=== PATIENT | female | born 1990 | race Caucasian/White ===

== ENCOUNTER 2019-03-25 06:32 | Emergency (ER) | payer BC ==
[~2019-03-25] VITALS: Ht 152.4 cm; Wt 50.8 kg
[2019-03-25] MEDS ORDERED: SPIRONOLACTONE100 MG ORAL (06:43)
[2019-03-25 06:45] VITALS: BP 116/74
--- NOTE | 2019-03-25 06:45 | NUR ---
ED Nurse Note: pt brought in by ambulance for C/O allergic reaction since ealier today. pt stated she woke up with hives with tightness to chest. pt verbalizes SOB. pt stated she ate shellfish before going to sleep. pt is alert x4
[2019-03-25] MEDS ORDERED: Solu-MEDROL 125mg Inj IVP ONE (07:00)
[2019-03-25] MEDS ORDERED: DiphenhydrAMINE 50mg/ml Inj IVP ONE (07:00)
[2019-03-25] MEDS ORDERED: MEDROL DOSEPAK4 MG ORAL (07:17)
[2019-03-25] MEDS ORDERED: BENADRYL25 MG ORAL (07:17)
[2019-03-25] MEDS ORDERED: PEPCID AC20 M2 PO (07:17)
--- NOTE | 2019-03-25 07:19 | NUR ---
ED Nurse Note: report given to Helene Crain RN .
--- NOTE | 2019-03-25 07:40 | NUR ---
ED Nurse Note:pt relates feeling improved able to tolerate po fluids well. states she will uber home. tolerating ivf infusion well.
--- NOTE | 2019-03-25 07:57 | Emergency Room Report ---
History of Present Illness General Chief Complaint: Allergic Reaction Source: Patient Present Illness HPI Patient presents emergency department today complaining of acute allergic reaction. Patient states that she had some crab last night she is not sure if she has a shellfish allergy. She has eaten that before without difficulty. She developed acute onset of rash throughout the body. Associate with some sensation of throat swelling and mild shortness of breath. She came in for further evaluation. Denies any fever nausea vomiting diarrhea chills. Denies any chest pain shortness of breath. No prior episodes of this. Symptoms are noted to be severe. No other modifying factors. No other associated signs and symptoms. No other complaints were noted. Allergies: Coded Allergies: No Known Allergies (Unverified , 03/25/19) Patient History Past Medical History: none Past Surgical History: none Pertinent Family History: none Social History: Denies: smoking, alcohol use, drug use Now: No - IUD Reviewed Nursing Documentation: PMH: Agreed; PSxH: Agreed Nursing Documentation-PMH Past Medical History: No History, Except For Review of Systems All Other Systems: negative except mentioned in HPI Physical Exam Vital Signs Date Time Temp Pulse Resp B/P (MAP) Pulse Ox O2 Delivery O2 Flow Rate FiO2 03/25/19 06:39 97.5 108 30 110/74 (86) 91 Room Air 03/25/19 06:45 94 Sp02 EP Interpretation: reviewed, normal General Appearance: normal inspection, well appearing, no apparent distress, alert Head: atraumatic Eyes: bilateral eye normal inspection ENT: normal ENT inspection, hearing grossly normal, normal voice Neck: normal inspection, full range of motion, supple, no bony tend Respiratory: normal inspection, lungs clear, normal breath sounds, no respiratory distress, no retraction, no wheezing Cardiovascular #1: regular rate, rhythm, no edema Gastrointestinal: normal inspection, normal bowel sounds, non tender, soft, no guarding, no hernia Genitourinary: no CVA tenderness Musculoskeletal: normal inspection, back normal, normal range of motion Neurologic: normal inspection, alert, responsive, speech normal Psychiatric: normal inspection, judgement/insight normal, mood/affect normal Skin: other - Urticaria throughout the body worse in the upper extremity Medical Decision Making Diagnostic Impression: Primary Impression: Allergic reaction ER Course Patient presents emergency department today complaining of acute allergic reaction. Patient develop hives. Differential diagnoses include acute allergic reaction, urticaria, angioedema, allergic reaction secondary to drugs just to name a few. Patient's exam however show significant improvement after receiving medications. Patient has no evidence of shortness of breath. Patient received Benadryl, Solu-Medrol, Pepcid. Patient's given a prescription for steroids and antihistamines.Patient is advised to follow up with primary doctor in 2-3 days and return the emergency room for any worsening symptoms and as needed. Patient is also advised to followup with an instructional writer. Last Vital Signs Date Time Temp Pulse Resp B/P (MAP) Pulse Ox O2 Delivery O2 Flow Rate FiO2 03/25/19 06:45 97.5 99 25 116/74 94 Room Air 03/25/19 06:45 94 Status: improved Disposition: HOME, SELF-CARE Condition: Stable Scripts Famotidine (PEPCID AC) 20 Mg Tablet 20 MG PO BID for 7 Days, TAB Prov: Heriberto Durbin MD 03/25/19 Diphenhydramine Hcl* (BENADRYL*) 25 Mg Capsule 50 MG ORAL Q6H PRN for Itching, #14 CAP Prov: Heriberto Durbin MD 03/25/19 Methylprednisolone (Methylprednisolone*) 4MG Dspk 4 MG ORAL DIRECTED for 6 Days, #21 EA 0 Refills Day 1: Two tablets before breakfast, one after lunch, one after dinner, and two at bedtime. If started late in the day, take all six tablets at once or divide into two or three doses, unless otherwise directed by prescriber. Day 2: One tablet before breakfast, one after lunch, one after dinner, and two at bedtime Day 3: One tablet before breakfast, one after lunch, one after dinner, and one at bedtime Day 4: One tablet before breakfast, one after lunch, and one at bedtime Day 5: One tablet before breakfast and one at bedtime Day 6: One tablet before breakfast Prov: Heriberto Durbin MD 03/25/19 Referrals: NOT CHOSEN IPA/,REFERRING (PCP) Departure Forms: Return to Work Return to Work Date: Mar 29, 2019 Patient Instructions: Hives, [id number], Allergies Heriberto Durbin MD Mar 25, 2019 07:57
[2019-03-25 08:29] VITALS: BP 106/72
--- NOTE | 2019-03-25 08:31 | NUR ---
ED Nurse Note: Pt cleared by health care Provider for discharge. DC instructions/prescription was given and explained to pt and verbalized understanding of teachings. All medical devices such as ID band removed. Pt is AAO x4, ambulatory and left with all personal belongings. denies dyspnea or itching at dc. aware of f/u with pmd and to avoid allergen trigger.
== END 2019-03-25 08:32 | disposition home or self-care (01) ==
LOC: EMR 07:00
DX: T78.40XA Allergy, unspecified, initial encounter (principal); R21 Rash and other nonspecific skin eruption; X58.XXXA Exposure to other specified factors, initial encounter
CPT/HCPCS: 96361; 96374; 96375; 99284; J1200; J2405; J2930; S0028; J7030